=== PATIENT | male | born 1950 | race Caucasian/White ===

== ENCOUNTER 2021-08-26 10:51 | Inpatient (IN) | payer BC, MEDICARE ==
[~2021-08-26] VITALS: Ht 177.8 cm; Wt 78.5 kg
[2021-08-26] MEDS ORDERED: MECLIZINE 25MG TABLET PO ONE (11:45)
[2021-08-26 12:31] LABS: BASOPHILS % 0.5 % (0.0-2.0); EOSINOPHILS % 0.3 % (0.0-5.0); HEMATOCRIT. 41.7 % (42.0-52.0); HEMOGLOBIN. 13.8 g/dL (14.0-18.0); LYMPHOCYTES % 13.3 % (20.0-50.0); MEAN CORPUSCULAR VOLUME 87.6 fL (80.0-94.0); MEAN PLATELET VOLUME 8.7 fl (7.4-10.4); MONOCYTES % 6.6 % (2.0-8.0); NEUTROPHILS % 79.3 % (40.0-76.0); PLATELET 225 x1000/uL (130-400); RED BLOOD CELL COUNT 4.75 mill/uL (4.7-6.1); RED CELL DISTRIBUTION WIDTH 14.3 % (11.6-14.6)
[2021-08-26 12:38] LABS: CHLORIDE 103 mEq/L (98-107)
[2021-08-26] MEDS ORDERED: MECLIZINE 25MG TABLET PO NR (13:46)
[2021-08-26 14:29] LABS: CLARITY URINE CLEAR (CLEAR); COLOR URINE YELLOW (YELLOW); KETONES URINE NEGATIVE (NEGATIVE); LEUKOCYTE ESTERASE URINE NEGATIVE (NEGATIVE); NITRITE URINE NEGATIVE (NEGATIVE); OCCULT BLOOD URINE NEGATIVE (NEGATIVE); PH URINE 8.5 (4.5-8.0); PROTEIN URINE TRACE (NEGATIVE)
[2021-08-26] MEDS ORDERED: ONDANSETRON HCL 4MG/2ML INJ IV ONE (14:45)
[2021-08-26] MEDS ORDERED: ONDANSETRON HCL 4MG/2ML INJ IV NR (14:45)
[2021-08-26] MEDS ORDERED: ACETAMINOPHEN 325MG TABLET PO PRN (17:15)
[2021-08-26] MEDS ORDERED: DOCUSATE SODIUM 100MG CAPSULE PO PRN (17:15)
[2021-08-26] MEDS: ENOXAPARIN 40MG/0.4ML SYR SUBCUT SCH (17:48)
[2021-08-26] MEDS: MECLIZINE 25MG TABLET PO PRN (17:59)
[2021-08-26 19:25] VITALS: BP 155/78
[2021-08-26] MEDS ORDERED: ZOLPIDEM TARTRATE 5MG TABLET PO PRN (20:00)
[2021-08-27] VITALS: BP 126/68
[2021-08-27] MEDS ORDERED: BENA-8 MT (01:05)
[2021-08-27] MEDS ORDERED: ATOR20TA65 PO (01:05)
[2021-08-27] MEDS ORDERED: AMLO10TA80 MT (01:05)
[2021-08-27 04:00] VITALS: BP 127/68
[2021-08-27] MEDS: MECLIZINE 25MG TABLET PO PRN ×2 (06:19→14:47)
[2021-08-27 07:10] LABS: BASOPHILS % 0.5 % (0.0-2.0); EOSINOPHILS % 0.6 % (0.0-5.0); HEMATOCRIT. 41.8 % (42.0-52.0); LYMPHOCYTES % 24.9 % (20.0-50.0); MEAN CORPUSCULAR VOLUME 86.6 fL (80.0-94.0); MONOCYTES % 11.6 % (2.0-8.0); NEUTROPHILS % 62.4 % (40.0-76.0); PLATELET 238 x1000/uL (130-400); RED BLOOD CELL COUNT 4.83 mill/uL (4.7-6.1); RED CELL DISTRIBUTION WIDTH 14.5 % (11.6-14.6)
[2021-08-27 07:40] LABS: CHLORIDE 107 mEq/L (98-107)
[2021-08-27 08:00] VITALS: BP 136/75
[2021-08-27 12:00] VITALS: BP 135/77
[2021-08-27] MEDS ORDERED: MECL-159 MT (15:41)
[2021-08-27 15:58] VITALS: BP 128/74
[2021-08-27] MEDS ORDERED: GADOTERATE MEGLUMINE 5 MMOL/10 ML VIAL IV ONE (16:55)
[2021-08-27] MEDS: ENOXAPARIN 40MG/0.4ML SYR SUBCUT SCH (18:00)
[2021-08-27 18:20] VITALS: BP_SYST 128; BP_SYST 129; BP_DIAS 69; BP_DIAS 74
== END 2021-08-27 20:25 | disposition home or self-care (01) | DRG 74 ==
LOC: ER 10:51 → 7WST 16:41 → CANRESERV 17:11 → ENRESERV 17:11 → EDBEDREQSVC 17:22 → ENRESERV 18:33
PROVIDERS: ADMIT Internal Medicine Pulmonary Disease; ATTEND Internal Medicine Pulmonary Disease
PROC: 4A10X4Z Monitoring of Central Nervous Electrical Activity, External Approach (ICD-10-PCS; principal; 2021-08-27)
DX: G90.8 Other disorders of autonomic nervous system (principal); E87.1 Hypo-osmolality and hyponatremia; R26.81 Unsteadiness on feet; H55.09 Other forms of nystagmus
CPT/HCPCS: 36415; 70553; 80048; 80053; 81003; 82962; 85025; 93005; 95816; 97161; 97162; 99285; A9577; J1650; J2405; J8597

== ENCOUNTER 2022-08-13 16:43 | Inpatient (IN) | payer BC, MEDICARE ==
[~2022-08-13] VITALS: Ht 177.8 cm; Wt 68.0 kg
[~2022-08-13 16:43] MED LIST: AMLO10TA80 MT; ATOR20TA65 PO; BENA-8 MT; MECL-159 MT
[2022-08-13 17:42] LABS: BASOPHILS % 0.5 % (0.0-2.0); EOSINOPHILS % 0.6 % (0.0-5.0); HEMATOCRIT. 42.5 % (42.0-52.0); HEMOGLOBIN. 14.3 g/dL (14.0-18.0); LYMPHOCYTES % 13.7 % (20.0-50.0); MEAN CORPUSCULAR HEMOGLOBIN 29.8 pg (28.0-32.0); MEAN CORPUSCULAR VOLUME 88.5 fL (80.0-94.0); MEAN PLATELET VOLUME 7.8 fl (7.4-10.4); MONOCYTES % 10.2 % (2.0-8.0); PLATELET 310 x1000/uL (130-400); RED CELL DISTRIBUTION WIDTH 15.4 % (11.6-14.6)
[2022-08-13 17:53] LABS: CHLORIDE 103 mEq/L (98-107)
[2022-08-13 18:12] LABS: CREATINE KINASE 93 IU/L (39-308); ETHANOL BLOOD < 10 mg/dL (-10)
[2022-08-13] MEDS ORDERED: DIPHENHYDRAMINE 50MG/ML VIAL IV ONE (18:30)
[2022-08-13] MEDS ORDERED: HALOPERIDOL LACTATE 5MG/ML VIAL IM ONE (18:30)
[2022-08-13] MEDS ORDERED: LORAZEPAM 2MG/ML CPJ IV ONE (18:30)
[2022-08-14] VITALS (22 sets, daily range): BP systolic 99–139; BP diastolic 45–99; PULSE 88–129; RESP 12–39; TEMP 97.8–100.5
[2022-08-14 01:12] LABS: CLARITY URINE TURBID (CLEAR); COLOR URINE YELLOW (YELLOW); KETONES URINE TRACE (NEGATIVE); LEUKOCYTE ESTERASE URINE 3+ (NEGATIVE); NITRITE URINE POSITIVE (NEGATIVE); OCCULT BLOOD URINE 1+ (NEGATIVE); PH URINE 5.5 (4.5-8.0); PROTEIN URINE TRACE (NEGATIVE); SPECIFIC GRAVITY URINE 1.017 (1.005-1.030)
[2022-08-14 01:30] LABS: *AMPHETAMINES SCREEN URINE NEGATIVE (NEGATIVE); *BARBITURATES SCREEN URINE NEGATIVE (NEGATIVE); *BENZODIAZEPINES SCREEN URINE NEGATIVE (NEGATIVE); *COCAINE SCREEN URINE NEGATIVE (NEGATIVE); CANNABINOID URINE SCREEN NEGATIVE (NEGATIVE); METHADONE URINE SCREEN NEGATIVE (NEGATIVE); OPIATES URINE SCREEN NEGATIVE (NEGATIVE); PHENCYCLIDINE URINE SCREEN NEGATIVE (NEGATIVE)
[2022-08-14 05:44] LABS: BASOPHILS % 0.2 % (0.0-2.0); HEMATOCRIT. 42.1 % (42.0-52.0); HEMOGLOBIN. 13.9 g/dL (14.0-18.0); LYMPHOCYTES % 7.5 % (20.0-50.0); MEAN CORPUSCULAR HEMOGLOBIN 29.2 pg (28.0-32.0); MEAN CORPUSCULAR VOLUME 88.2 fL (80.0-94.0); MEAN PLATELET VOLUME 8.2 fl (7.4-10.4); MONOCYTES % 8.6 % (2.0-8.0); NEUTROPHILS % 83.7 % (40.0-76.0); PLATELET 304 x1000/uL (130-400); RED BLOOD CELL COUNT 4.77 mill/uL (4.7-6.1); RED CELL DISTRIBUTION WIDTH 15.7 % (11.6-14.6)
[2022-08-14 06:04] LABS: CHLORIDE 103 mEq/L (98-107)
[2022-08-14] MEDS ORDERED: ACETAMINOPHEN 325MG TABLET PO PRN (07:15)
[2022-08-14] MEDS ORDERED: ONDANSETRON HCL 4MG/2ML INJ IV PRN (07:15)
[2022-08-14] MEDS ORDERED: CLONIDINE 0.1MG TABLET PO PRN (07:15)
[2022-08-14] MEDS ORDERED: DOCUSATE SODIUM 100MG CAPSULE PO PRN (07:15)
[2022-08-14] MEDS: CEFTRIAXONE 1,000 MG in DEXTROSE 5% WATER 50 ML IV SCH (08:48)
[2022-08-14] MEDS: LISINOPRIL 20MG TABLET PO SCH (09:47)
[2022-08-14] MEDS: FAMOTIDINE 20MG/2ML VIAL IV SCH ×2 (09:47→21:17)
[2022-08-14] MEDS: AMLODIPINE 10MG TABLET PO SCH (09:48)
[2022-08-14] MEDS: LEVETIRACETAM 500MG PREMIX 100 ML IV SCH ×2 (12:03→21:17)
[2022-08-14] MEDS: DEXT 5% WATER + KCL 20MEQ/L 1,000 ML IV SCH ×2 (12:55→22:44)
[2022-08-14] MEDS: ATORVASTATIN CALCIUM 20MG TABLET PO SCH (21:17)
[2022-08-15] VITALS: BP 117/57; PULSE 101; RESP 18; TEMP 97.9
[2022-08-15 04:00] VITALS: BP 113/68; PULSE 105; RESP 18; TEMP 97.7
[2022-08-15 06:35] LABS: HEMATOCRIT. 35.3 % (42.0-52.0); HEMOGLOBIN. 11.9 g/dL (14.0-18.0); MEAN CORPUSCULAR HEMOGLOBIN 29.8 pg (28.0-32.0); MEAN CORPUSCULAR VOLUME 88.1 fL (80.0-94.0); MEAN PLATELET VOLUME 8.2 fl (7.4-10.4); PLATELET 240 x1000/uL (130-400); RED CELL DISTRIBUTION WIDTH 15.4 % (11.6-14.6)
[2022-08-15 06:40] LABS: CHLORIDE 102 mEq/L (98-107)
[2022-08-15 08:00] VITALS: BP 110/67; PULSE 100; RESP 18; TEMP 98
[2022-08-15] MEDS: AMLODIPINE 10MG TABLET PO SCH (09:00)
[2022-08-15] MEDS: LISINOPRIL 20MG TABLET PO SCH (09:00)
[2022-08-15] MEDS: CEFTRIAXONE 1,000 MG in DEXTROSE 5% WATER 50 ML IV SCH (09:54)
[2022-08-15] MEDS: DEXT 5% WATER + KCL 20MEQ/L 1,000 ML IV SCH ×2 (09:55→23:34)
[2022-08-15] MEDS: LEVETIRACETAM 500MG PREMIX 100 ML IV SCH ×2 (09:55→21:44)
[2022-08-15] MEDS: FAMOTIDINE 20MG/2ML VIAL IV SCH ×2 (09:55→21:44)
[2022-08-15 12:00] VITALS: BP 102/57; PULSE 88; RESP 18; TEMP 98.1
[2022-08-15 16:00] VITALS: BP 100/56; PULSE 93; RESP 20; TEMP 98.2
[2022-08-15 20:00] VITALS: BP 121/55; PULSE 92; RESP 16; TEMP 97.7
[2022-08-15] MEDS: ATORVASTATIN CALCIUM 20MG TABLET PO SCH (21:44)
[2022-08-16] VITALS: BP 113/50; PULSE 77; RESP 16; TEMP 97.1
[2022-08-16 04:00] VITALS: BP 129/54; PULSE 77; RESP 18; TEMP 96.9
[2022-08-16] MEDS: DEXT 5% WATER + KCL 20MEQ/L 1,000 ML IV SCH (05:46)
[2022-08-16 08:00] VITALS: BP 126/81; PULSE 91; RESP 18; TEMP 97.8
[2022-08-16 08:11] LABS: BASOPHILS % 0.3 % (0.0-2.0); EOSINOPHILS % 0.4 % (0.0-5.0); HEMATOCRIT. 36.8 % (42.0-52.0); HEMOGLOBIN. 12.5 g/dL (14.0-18.0); LYMPHOCYTES % 7.2 % (20.0-50.0); MEAN CORPUSCULAR HEMOGLOBIN 29.8 pg (28.0-32.0); MEAN CORPUSCULAR VOLUME 87.7 fL (80.0-94.0); MEAN PLATELET VOLUME 8.3 fl (7.4-10.4); NEUTROPHILS % 85.1 % (40.0-76.0); PLATELET 258 x1000/uL (130-400); RED BLOOD CELL COUNT 4.19 mill/uL (4.7-6.1); RED CELL DISTRIBUTION WIDTH 15.1 % (11.6-14.6)
[2022-08-16] MEDS: LEVETIRACETAM 500MG PREMIX 100 ML IV SCH (08:18)
[2022-08-16] MEDS: FAMOTIDINE 20MG/2ML VIAL IV SCH (08:18)
[2022-08-16] MEDS: CEFTRIAXONE 1,000 MG in DEXTROSE 5% WATER 50 ML IV SCH (08:18)
[2022-08-16] MEDS: AMLODIPINE 10MG TABLET PO SCH (08:19)
[2022-08-16] MEDS: LISINOPRIL 20MG TABLET PO SCH (08:19)
[2022-08-16 08:23] LABS: PLATELET ESTIMATE NORMAL
[2022-08-16 08:25] LABS: CHLORIDE 104 mEq/L (98-107)
[2022-08-16 12:00] VITALS: BP 118/76; PULSE 86; RESP 18; TEMP 98.1
[2022-08-16] MEDS ORDERED: CEPH500T MT (14:36)
[2022-08-16] MEDS ORDERED: KEPP500 MT ×2 (14:36→19:01)
[2022-08-16 16:00] VITALS: BP 101/57; PULSE 79; RESP 18; TEMP 98.6
[2022-08-16 17:48] VITALS: BP 101/57; PULSE 79; TEMP 98.9; O2SAT 97
[2022-08-16] MEDS ORDERED: CEPH500C2 MT (19:01)
== END 2022-08-16 18:37 | disposition home health service (06) | DRG 871 ==
LOC: ER 16:43 → MICUNO 23:08 → ENRESERV 08-14 00:20 → 8WST 08-14 22:33
PROVIDERS: ADMIT Internal Medicine Pulmonary Disease; ATTEND Internal Medicine Pulmonary Disease
DX: A41.9 Sepsis, unspecified organism (principal); S06.5XAA Traumatic subdural hemorrhage with loss of consciousness status unknown, initial encounter; N39.0 Urinary tract infection, site not specified; E87.1 Hypo-osmolality and hyponatremia; E44.1 Mild protein-calorie malnutrition; G93.49 Other encephalopathy; I10 Essential (primary) hypertension; Z68.21 Body mass index [BMI] 21.0-21.9, adult; Z86.73 Personal history of transient ischemic attack (TIA), and cerebral infarction without residual deficits; W18.30XA Fall on same level, unspecified, initial encounter; Y93.89 Activity, other specified; Y92.009 Unspecified place in unspecified non-institutional (private) residence as the place of occurrence of the external cause; Y99.8 Other external cause status
CPT/HCPCS: 36415; 71045; 80048; 80053; 80305; 80307; 80320; 80329; 81003; 82140; 82550; 83605; 84443; 84484; 85025; 87077; 87186; 93005; 97162; 97530; 99291; J0696; J1200; J1630; J1953; J2060; J3490; J7060; G0480